=== PATIENT | female | born 1965 | race Caucasian/White ===

== ENCOUNTER 2023-10-04 12:48 | Emergency (ER) | payer OTHER, SELFPAY ==
[2023-10-04 12:51] VITALS: BP 204/98; PULSE 85; RESP 16; TEMP 36.9; O2SAT 97; BMI 32.3
--- NOTE | 2023-10-04 13:05 | CRLHL7_ITS ---
For Patients: As a result of the Century Cures Act, medical imaging exams and procedure reports are released immediately into your electronic medical record. You may view this report before your referring provider. If you have questions, please contact your health care provider. Indication: Trauma. Facial pain Technique: Noncontrast axial CT of the facial bones with coronal reformats are provided. No comparisons. Findings: Mild mucosal thickening within the floor of the maxillary sinuses. The remainder of the visualized paranasal sinuses are clear. The ostiomeatal complexes are patent bilaterally. The visualized intraorbital contents appear within normal limits. The visualized osseous structures of the face appear intact. Moderate soft tissue swelling overlying the left cheek and extending into the left orbit compatible with a hematoma. Impression: 1. No radiographic evidence of acute osseous injury. 2. Moderate soft tissue swelling overlying the left cheek and extending into the left orbit compatible with a hematoma. Please note that all CT scans at this facility use dose modulation, iterative reconstruction, and/or weight-based dosing when appropriate to reduce radiation dose to as low as reasonably achievable. Dictated by Javier Weinstein MD @ 10/04/2023 1:39:14 PM (Electronically Signed)
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
[2023-10-04 13:45] VITALS: BP 197/111
== END 2023-10-04 13:56 | disposition home or self-care (01) ==
PROVIDERS: Emergency Provider Family Medicine
DX: S00.83XA Contusion of other part of head, initial encounter (principal); Y04.2XXA Assault by strike against or bumped into by another person, initial encounter
CPT/HCPCS: 70486; 99283; 99284